=== PATIENT | female | born 1965 | race Two or more races ===

== ENCOUNTER 2022-02-20 06:00 | Day surgery (SDC) | payer OTHER ==
[~2022-02-20] VITALS: Ht 152.4 cm; Wt 102.1 kg
[~2022-02-20 06:00] MED LIST: CLINORIL PO; GABAPENTIN300 M2 PO; HYZAAR 100-12.1 EACH PO; JARDIANCE10 MG PO; LIPITOR20 MG PO; SYNTHROID112 MCG PO; TOPROL XL25 M1 PO
== END 2022-02-20 17:35 | disposition home or self-care (01) ==
LOC: CIR.AMB 06:00
PROVIDERS: ATTEND Obstetrics & Gynecology
DX: N93.9 Abnormal uterine and vaginal bleeding, unspecified (principal); Z20.822 Contact with and (suspected) exposure to COVID-19; I10 Essential (primary) hypertension; E78.5 Hyperlipidemia, unspecified; E11.9 Type 2 diabetes mellitus without complications; E03.9 Hypothyroidism, unspecified

== ENCOUNTER 2022-05-12 09:15 | Inpatient (IN) | payer OTHER ==
[~2022-05-12] VITALS: Ht 152.4 cm; Wt 108.0 kg
[~2022-05-12 09:15] MED LIST changes: +B-COMPLEX1 EACH PO; +PROTON PO
[2022-05-12] MEDS ORDERED: NEURONTIN300 MG PO (13:15)
[2022-05-12] MEDS ORDERED: SILENOR6 MG (13:15)
== END 2022-05-18 11:03 | disposition home or self-care (01) | DRG 743 ==
LOC: O/R 05-15 05:58 → OB/GYN 05-15 05:58
PROVIDERS: ADMIT Obstetrics & Gynecology; ATTEND Obstetrics & Gynecology
PROC: 0UT70ZZ Resection of Bilateral Fallopian Tubes, Open Approach (ICD-10-PCS; 2022-05-15)
PROC: 0UT20ZZ Resection of Bilateral Ovaries, Open Approach (ICD-10-PCS; 2022-05-15)
PROC: 0UT90ZZ Resection of Uterus, Open Approach (ICD-10-PCS; principal; 2022-05-15 12:00)
DX: D25.1 Intramural leiomyoma of uterus (principal); N80.03 Adenomyosis of the uterus; N72 Inflammatory disease of cervix uteri; Z20.822 Contact with and (suspected) exposure to COVID-19

== ENCOUNTER 2022-05-24 08:57 | Inpatient (IN) | payer OTHER ==
[~2022-05-24] VITALS: Ht 152.4 cm; Wt 108.0 kg
[~2022-05-24 08:57] MED LIST changes: +NEURONTIN300 MG PO; +SILENOR6 MG
== END 2022-05-31 10:08 | disposition home or self-care (01) | DRG 863 ==
LOC: ER 08:57 → OB/GYN 16:14
PROVIDERS: ADMIT Obstetrics & Gynecology; ATTEND Obstetrics & Gynecology
PROC: 8E0ZXY6 Isolation (ICD-10-PCS; principal; 2022-05-24)
DX: T81.49XA Infection following a procedure, other surgical site, initial encounter (principal); Z90.710 Acquired absence of both cervix and uterus; Z90.722 Acquired absence of ovaries, bilateral; Z90.79 Acquired absence of other genital organ(s); Z20.822 Contact with and (suspected) exposure to COVID-19